=== PATIENT | male | born 2000 | race Hispanic/Latino ===

== ENCOUNTER → 2021-08-24 | Emergency (ER) | payer OTHER ==
[~2021-08-24] VITALS: Ht 175.3 cm; Wt 68.0 kg
[~2021-08-24] MED LIST: ACET-66 PO
[2021-08-24 17:19] VITALS: BP 127/83
== END | disposition home or self-care (01) ==
LOC: EDH 17:15
DX: R51.9 Headache, unspecified (principal); R42 Dizziness and giddiness; W07.XXXA Fall from chair, initial encounter; Y93.89 Activity, other specified; Y92.89 Other specified places as the place of occurrence of the external cause; Y99.8 Other external cause status
CPT/HCPCS: 70450